=== PATIENT | female | born 1950 | race Caucasian/White ===

== ENCOUNTER 2019-11-20 01:55 | Inpatient (IN) | payer BC ==
[~2019-11-20] VITALS: Ht 170.2 cm; Wt 104.8 kg
--- NOTE | 2019-11-20 02:15 | NUR ---
PT FROM [place] WITH ABDOMINAL PAIN X1 DAY, REPORTS EPIGASTRIC PAIN AFTER EATING FOR APPX X1 MONTH, WITH SIGNIFICANT INCREASE IN PAIN TODAY ALONG WITH NAUSEA. PT DENIES ANY OTHER MEDICAL C/O AT THIS TIME. PT PLACED ON MONITORING, CALL LIGHT WITHIN REACH, ALL SAFETY MEASURES IN PLACE, FAMILY AT FOR SUPPORT.
[2019-11-20] MEDS ORDERED: MORPHINE SULFATE 4 MG/ML, 1ML IVPush PRN (02:30)
[2019-11-20] MEDS ORDERED: SODIUM CHLORIDE 0.9% 1,000ML IVBOLUS ONE (02:30)
[2019-11-20] MEDS ORDERED: ONDANSETRON 2MG/ML, 2ML IVPush ONE (02:30)
[2019-11-20] MEDS ORDERED: SODIUM CHLORIDE FLUSH 10ML SYR IVF ONE (02:30)
[2019-11-20] MEDS ORDERED: ONDANSETRON 2MG/ML, 2ML ONE (02:35)
[2019-11-20] MEDS ORDERED: MORPHINE SULFATE 4 MG/ML, 1ML ONE (02:35)
--- NOTE | 2019-11-20 02:50 | NUR ---
IV PLACED, IVF INITIATED, MEDICATED PER MAR, PT TO IMAGING AT THIS TIME.
--- NOTE | 2019-11-20 03:04 | NUR ---
not in room for ekg
[2019-11-20 03:11] LABS: BASOPHILS # (AUTO) 0.04 x10^3/uL (0-0.1); BASOPHILS % (AUTO) 1 % (0-1); EOSINOPHILS # (AUTO) 0.14 x10^3/uL (0-0.4); EOSINOPHILS % (AUTO) 2 % (1-7); LYMPHOCYTES # (AUTO) 0.71 x10^3/uL (1-3.4); LYMPHOCYTES % (AUTO) 12 % (22-44); MD NO; MEAN CORPUSCULAR HEMOGLOBIN 34.8 pg (27.0-34.8); MEAN CORPUSCULAR HGB CONC 34.2 g/dL (32.4-35.8); MEAN PLATELET VOLUME 9.1 fL (7.4-10.4); MONOCYTES # (AUTO) 0.54 x10^3/uL (0.2-0.8); MONOCYTES % (AUTO) 9 % (2-9); NEUTROPHILS # (AUTO) 4.74 x10^3/uL (1.8-6.8); NEUTROPHILS % (AUTO) 77 % (42-75); PLATELET COUNT 205 x10^3/uL (130-400); RED BLOOD COUNT 4.15 x10^6/uL (3.82-5.3)
[2019-11-20 03:19] LABS: ALBUMIN 3.1 g/dL (3.4-5.0); ANION GAP 7 mmol/L (5-15); CALCIUM 8.8 mg/dL (8.5-10.1); CHLORIDE 110 mmol/L (98-107)
[2019-11-20 03:25] LABS: ALANINE AMINOTRANSFERASE 342 U/L (12-78); ALKALINE PHOSPHATASE 86 U/L (45-117); BILIRUBIN,TOTAL 9.7 mg/dL (0.2-1.0); CREATININE 0.69 mg/dL (0.55-1.02); TROPONIN I < 0.015 ng/mL (0.000-0.045)
[2019-11-20] MEDS ORDERED: NAPR250T6 PO (04:14)
[2019-11-20] MEDS ORDERED: hydrALAzine 20 MG/ML, 1ML IVPush PRN (05:00)
[2019-11-20] MEDS ORDERED: ONDANSETRON 2MG/ML, 2ML IVPush PRN (05:00)
[2019-11-20 05:13] VITALS: BP 155/79
[2019-11-20] MEDS: LACTATED RINGERS 1,000 ML IV SCH ×2 (05:54→21:10)
[2019-11-20] MEDS ORDERED: POTASSIUM CHLORIDE 40 MEQ in SODIUM CHLORIDE 0.9% 500 ML IV ONE (07:00)
[2019-11-20 08:06] VITALS: BP 148/74
[2019-11-20 13:32] VITALS: BP 136/78
[2019-11-20] MEDS: SENNA/DOCUSATE TABLET PO SCH (13:41)
[2019-11-20] MEDS: ACETAMINOPHEN 325 MG TABLET PO PRN (13:41)
[2019-11-20 18:29] VITALS: BP 146/83
[2019-11-21 00:11] VITALS: BP 162/78
[2019-11-21] MEDS: LACTATED RINGERS 1,000 ML IV SCH (06:27)
[2019-11-21 07:29] VITALS: BP 170/76
[2019-11-21 07:36] LABS: ALBUMIN 2.8 g/dL (3.4-5.0); ANION GAP 8 mmol/L (5-15); CALCIUM 8.5 mg/dL (8.5-10.1); CHLORIDE 113 mmol/L (98-107)
[2019-11-21 07:40] LABS: ALANINE AMINOTRANSFERASE 206 U/L (12-78); ALKALINE PHOSPHATASE 70 U/L (45-117); BILIRUBIN,TOTAL 6.2 mg/dL (0.2-1.0); CREATININE 0.51 mg/dL (0.55-1.02); TOTAL PROTEIN 5.7 g/dL (6.4-8.2)
[2019-11-21 07:59] LABS: BASOPHILS # (AUTO) 0.02 x10^3/uL (0-0.1); BASOPHILS % (AUTO) 1 % (0-1); EOSINOPHILS # (AUTO) 0.14 x10^3/uL (0-0.4); EOSINOPHILS % (AUTO) 4 % (1-7); LYMPHOCYTES # (AUTO) 0.75 x10^3/uL (1-3.4); LYMPHOCYTES % (AUTO) 19 % (22-44); MD NO; MEAN CORPUSCULAR HEMOGLOBIN 34.9 pg (27.0-34.8); MEAN CORPUSCULAR HGB CONC 34.1 g/dL (32.4-35.8); MEAN CORPUSCULAR VOLUME 102.3 fL (80-100); MEAN PLATELET VOLUME 9.1 fL (7.4-10.4); MONOCYTES # (AUTO) 0.32 x10^3/uL (0.2-0.8); MONOCYTES % (AUTO) 8 % (2-9); NEUTROPHILS # (AUTO) 2.75 x10^3/uL (1.8-6.8); NEUTROPHILS % (AUTO) 69 % (42-75); PLATELET COUNT 209 x10^3/uL (130-400); RED BLOOD COUNT 3.56 x10^6/uL (3.82-5.3); RED CELL DISTRIBUTION WIDTH 13.2 % (9.6-15.2)
[2019-11-21] MEDS: SENNA/DOCUSATE TABLET PO SCH (09:00)
[2019-11-21 14:06] VITALS: BP 152/83
[2019-11-21 19:36] VITALS: BP 167/81
[2019-11-22 00:39] VITALS: BP 157/78
[2019-11-22] MEDS: LACTATED RINGERS 1,000 ML IV SCH ×2 (00:39→20:30)
[2019-11-22 06:06] LABS: ALBUMIN 2.8 g/dL (3.4-5.0); ANION GAP 7 mmol/L (5-15); CALCIUM 8.4 mg/dL (8.5-10.1); CHLORIDE 112 mmol/L (98-107)
[2019-11-22 06:10] LABS: ALANINE AMINOTRANSFERASE 186 U/L (12-78); ALKALINE PHOSPHATASE 67 U/L (45-117); BILIRUBIN,TOTAL 6.2 mg/dL (0.2-1.0); CREATININE 0.59 mg/dL (0.55-1.02)
[2019-11-22] MEDS ORDERED: BUPIVACAINE/EPI 0.5% 1:200K ONE (06:45)
[2019-11-22 07:10] VITALS: BP 180/92
[2019-11-22] MEDS ORDERED: MIDAZOLAM 1 MG/ML, 2ML ONE ×2 (08:58→11:09)
[2019-11-22] MEDS ORDERED: FENTANYL PF 100 MCG/2ML ONE ×2 (08:58→10:36)
[2019-11-22] MEDS ORDERED: CHLORHEXIDINE 15 ML UDC MM ONE (09:00)
[2019-11-22] MEDS: SENNA/DOCUSATE TABLET PO SCH (09:00)
[2019-11-22] MEDS ORDERED: DIPHENHYDRAMINE 50 MG/ML, 1ML IVPush PRN (09:30)
[2019-11-22] MEDS ORDERED: hydrALAzine 20 MG/ML, 1ML IV PRN (09:30)
[2019-11-22] MEDS ORDERED: OXYcodone 5 MG/5 ML ORAL.SOL UDC PO PRN (09:30)
[2019-11-22] MEDS ORDERED: HYDROmorphone 1 MG/ML, 1ML INJ IVPush PRN (09:30)
[2019-11-22] MEDS ORDERED: ONDANSETRON 2MG/ML, 2ML IVPush PRN (09:30)
[2019-11-22] MEDS ORDERED: LABETALOL 5MG/ML, 20ML IV PRN (09:30)
[2019-11-22] MEDS ORDERED: MEPERIDINE/PF 25MG/0.5ML IVPush PRN (09:30)
[2019-11-22] MEDS ORDERED: ACETAMINOPHEN 325 MG TABLET PO PRN (09:30)
[2019-11-22] MEDS ORDERED: PROMETHAZINE 25 MG/ML, 1ML IVPush PRN (09:30)
[2019-11-22] MEDS ORDERED: DIAZEPAM 5 MG/ML, 2ML IVPush PRN (09:30)
[2019-11-22] MEDS ORDERED: ACETAMINOPHEN 650 MG/20.3 ML UDC ONE (10:37)
[2019-11-22] MEDS ORDERED: ACETAMINOPHEN 325 MG TABLET ONE (10:37)
[2019-11-22] MEDS ORDERED: OXYcodone 5 MG/5 ML ORAL.SOL UDC ONE (10:37)
[2019-11-22] MEDS: FENTANYL PF 100 MCG/2ML IV PRN ×3 (10:40→12:10)
[2019-11-22] MEDS ORDERED: PROPOFOL 10 MG/ML, 100ML IV ONE (11:10)
[2019-11-22 13:38] VITALS: BP 159/84
[2019-11-22] MEDS ORDERED: POTASSIUM CHLORIDE 20 MEQ TAB.ER.PRT PO ONE (15:30)
[2019-11-22] MEDS: DILTIAZEM 30 MG TABLET PO SCH ×2 (15:30→22:00)
[2019-11-22 16:42] VITALS: BP 125/74
[2019-11-22] MEDS: RIVAROXABAN 20 MG TABLET PO SCH (16:43)
[2019-11-22 17:44] LABS: TROPONIN I < 0.015 ng/mL (0.000-0.045)
[2019-11-22 19:23] VITALS: BP 125/72
[2019-11-23 00:10] VITALS: BP 137/72
[2019-11-23] MEDS: DILTIAZEM 30 MG TABLET PO SCH ×3 (05:54→22:27)
[2019-11-23 06:19] LABS: CHLORIDE 110 mmol/L (98-107)
[2019-11-23 06:41] LABS: ANION GAP 6 mmol/L (5-15); CALCIUM 8.7 mg/dL (8.5-10.1); CREATININE 0.79 mg/dL (0.55-1.02)
[2019-11-23 07:44] VITALS: BP 151/83
[2019-11-23] MEDS: SENNA/DOCUSATE TABLET PO SCH (09:04)
[2019-11-23] MEDS: ACETAMINOPHEN 325 MG TABLET PO PRN ×3 (09:05→20:08)
[2019-11-23] MEDS: LACTATED RINGERS 1,000 ML IV SCH ×2 (09:05→17:11)
[2019-11-23 10:14] LABS: ALBUMIN 2.6 g/dL (3.4-5.0); ANION GAP 6 mmol/L (5-15); CALCIUM 8.7 mg/dL (8.5-10.1); CHLORIDE 111 mmol/L (98-107)
[2019-11-23 10:17] LABS: ALANINE AMINOTRANSFERASE 240 U/L (12-78); ALKALINE PHOSPHATASE 69 U/L (45-117); BILIRUBIN,TOTAL 7.3 mg/dL (0.2-1.0); CREATININE 0.83 mg/dL (0.55-1.02)
[2019-11-23] MEDS ORDERED: RIVA20TA PO (11:59)
[2019-11-23 13:28] VITALS: BP 167/81
[2019-11-23 16:44] LABS: ANA SCREEN NEGATIVE (Negative)
[2019-11-23] MEDS: RIVAROXABAN 20 MG TABLET PO SCH (17:11)
[2019-11-23 19:15] VITALS: BP 163/90
[2019-11-23] MEDS: morphine SULFATE 10 MG/ML, 1ML IVPush PRN (20:09)
[2019-11-24] VITALS (9 sets, daily range): BP systolic 153–179; BP diastolic 74–91
[2019-11-24] MEDS: ACETAMINOPHEN 325 MG TABLET PO PRN ×2 (00:48→20:14)
[2019-11-24] MEDS: LACTATED RINGERS 1,000 ML IV SCH (03:22)
[2019-11-24] MEDS: DILTIAZEM 30 MG TABLET PO SCH ×3 (06:00→22:02)
[2019-11-24] MEDS ORDERED: POTASSIUM CHLORIDE 20 MEQ TAB.ER.PRT PO ONE (08:00)
[2019-11-24] MEDS: morphine SULFATE 10 MG/ML, 1ML IVPush PRN ×2 (09:11→18:14)
[2019-11-24] MEDS: LISINOPRIL 10 MG TABLET PO SCH (09:12)
[2019-11-24] MEDS: SENNA/DOCUSATE TABLET PO SCH (09:12)
[2019-11-24 11:17] LABS: BASOPHILS # (AUTO) 0.09 x10^3/uL (0-0.1); BASOPHILS % (AUTO) 2 % (0-1); EOSINOPHILS # (AUTO) 0.06 x10^3/uL (0-0.4); EOSINOPHILS % (AUTO) 1 % (1-7); LYMPHOCYTES # (AUTO) 0.76 x10^3/uL (1-3.4); LYMPHOCYTES % (AUTO) 12 % (22-44); MD NO; MEAN CORPUSCULAR HEMOGLOBIN 34.5 pg (27.0-34.8); MEAN CORPUSCULAR VOLUME 101.6 fL (80-100); MEAN PLATELET VOLUME 8.7 fL (7.4-10.4); MONOCYTES % (AUTO) 8 % (2-9); NEUTROPHILS # (AUTO) 4.96 x10^3/uL (1.8-6.8); NEUTROPHILS % (AUTO) 78 % (42-75); PLATELET COUNT 242 x10^3/uL (130-400); RED BLOOD COUNT 3.68 x10^6/uL (3.82-5.3); RED CELL DISTRIBUTION WIDTH 13.7 % (9.6-15.2)
[2019-11-24 11:21] LABS: ALANINE AMINOTRANSFERASE 232 U/L (12-78); ALBUMIN 2.9 g/dL (3.4-5.0); ANION GAP 7 mmol/L (5-15); BILIRUBIN, DIRECT 7.4 mg/dL (0.1-0.2); CALCIUM 9.2 mg/dL (8.5-10.1); CHLORIDE 107 mmol/L (98-107); CREATININE 0.63 mg/dL (0.55-1.02)
[2019-11-24 11:23] LABS: ALKALINE PHOSPHATASE 86 U/L (45-117); BILIRUBIN,INDIRECT 1.3 mg/dL (0.0-2.0); BILIRUBIN,TOTAL 8.7 mg/dL (0.2-1.0); TOTAL PROTEIN 6.6 g/dL (6.4-8.2)
[2019-11-24] MEDS ORDERED: LISI-167 PO (12:58)
[2019-11-24] MEDS: POTASSIUM CHLORIDE 20 MEQ TAB.ER.PRT PO SCH (17:14)
[2019-11-24] MEDS: CEFTRIAXONE PMX 2GM/50ML 50 ML IV SCH (17:16)
[2019-11-24] MEDS: METRONIDAZOLE PMX 500MG/100ML 100 ML IV SCH (18:14)
[2019-11-24] MEDS ORDERED: DIPHENHYDRAMINE 50 MG CAPSULE ONE (20:29)
[2019-11-24] MEDS ORDERED: DIPHENHYDRAMINE 50 MG CAPSULE PO ONE (20:30)
[2019-11-25 00:30] VITALS: BP 146/76
[2019-11-25] MEDS: METRONIDAZOLE PMX 500MG/100ML 100 ML IV SCH ×3 (02:45→17:09)
[2019-11-25] MEDS: DILTIAZEM 30 MG TABLET PO SCH ×3 (06:03→21:16)
[2019-11-25 07:08] VITALS: BP 160/83
[2019-11-25] MEDS: SENNA/DOCUSATE TABLET PO SCH (09:33)
[2019-11-25] MEDS: POTASSIUM CHLORIDE 20 MEQ TAB.ER.PRT PO SCH ×3 (09:33→17:08)
[2019-11-25] MEDS: LISINOPRIL 10 MG TABLET PO SCH (09:34)
[2019-11-25 13:55] VITALS: BP 138/81
[2019-11-25] MEDS: ACETAMINOPHEN 325 MG TABLET PO PRN (14:27)
[2019-11-25] MEDS: CEFTRIAXONE PMX 2GM/50ML 50 ML IV SCH (16:16)
[2019-11-25 19:00] VITALS: BP 134/79
[2019-11-25 21:15] VITALS: BP 138/71
[2019-11-25] MEDS ORDERED: DIPHENHYDRAMINE 25 MG CAPSULE PO ONE (21:30)
[2019-11-26 01:16] VITALS: BP 162/73
[2019-11-26] MEDS: METRONIDAZOLE PMX 500MG/100ML 100 ML IV SCH ×3 (02:07→17:47)
[2019-11-26 05:23] LABS: BASOPHILS # (AUTO) 0.01 x10^3/uL (0-0.1); BASOPHILS % (AUTO) 0 % (0-1); EOSINOPHILS # (AUTO) 0.18 x10^3/uL (0-0.4); EOSINOPHILS % (AUTO) 3 % (1-7); LYMPHOCYTES # (AUTO) 0.79 x10^3/uL (1-3.4); LYMPHOCYTES % (AUTO) 13 % (22-44); MD NO; MEAN CORPUSCULAR HEMOGLOBIN 34.9 pg (27.0-34.8); MEAN CORPUSCULAR HGB CONC 34.3 g/dL (32.4-35.8); MEAN CORPUSCULAR VOLUME 101.7 fL (80-100); MEAN PLATELET VOLUME 9.1 fL (7.4-10.4); MONOCYTES # (AUTO) 0.59 x10^3/uL (0.2-0.8); MONOCYTES % (AUTO) 10 % (2-9); NEUTROPHILS # (AUTO) 4.37 x10^3/uL (1.8-6.8); NEUTROPHILS % (AUTO) 74 % (42-75); PLATELET COUNT 259 x10^3/uL (130-400); RED BLOOD COUNT 3.64 x10^6/uL (3.82-5.3); RED CELL DISTRIBUTION WIDTH 13.8 % (9.6-15.2)
[2019-11-26] MEDS: DILTIAZEM 30 MG TABLET PO SCH ×3 (05:27→21:24)
[2019-11-26 05:31] LABS: CHLORIDE 108 mmol/L (98-107)
[2019-11-26 05:41] LABS: ALANINE AMINOTRANSFERASE 185 U/L (12-78); ALBUMIN 2.5 g/dL (3.4-5.0); ALKALINE PHOSPHATASE 110 U/L (45-117); ANION GAP 6 mmol/L (5-15); BILIRUBIN,TOTAL 7.2 mg/dL (0.2-1.0); CALCIUM 8.9 mg/dL (8.5-10.1); CREATININE 0.67 mg/dL (0.55-1.02); TOTAL PROTEIN 6.3 g/dL (6.4-8.2)
[2019-11-26 06:46] VITALS: BP 122/80
[2019-11-26] MEDS: SENNA/DOCUSATE TABLET PO SCH (09:00)
[2019-11-26] MEDS: ACETAMINOPHEN 325 MG TABLET PO PRN (09:05)
[2019-11-26] MEDS: LISINOPRIL 10 MG TABLET PO SCH (09:05)
[2019-11-26] MEDS: POTASSIUM CHLORIDE 20 MEQ TAB.ER.PRT PO SCH ×3 (09:05→17:06)
[2019-11-26 12:45] VITALS: BP 107/56
[2019-11-26] MEDS: CEFTRIAXONE PMX 2GM/50ML 50 ML IV SCH (17:06)
[2019-11-26 18:46] VITALS: BP 124/73
[2019-11-27 00:40] VITALS: BP 116/73
[2019-11-27] MEDS: METRONIDAZOLE PMX 500MG/100ML 100 ML IV SCH ×3 (01:38→18:47)
[2019-11-27] MEDS: DILTIAZEM 30 MG TABLET PO SCH ×3 (05:40→22:00)
[2019-11-27 08:01] VITALS: BP 150/84
[2019-11-27] MEDS: SENNA/DOCUSATE TABLET PO SCH (09:00)
[2019-11-27] MEDS: LISINOPRIL 10 MG TABLET PO SCH (09:26)
[2019-11-27] MEDS: POTASSIUM CHLORIDE 20 MEQ TAB.ER.PRT PO SCH ×3 (09:26→18:10)
[2019-11-27] MEDS ORDERED: CHLORHEXIDINE 15 ML UDC ONE (10:40)
[2019-11-27] MEDS ORDERED: MIDAZOLAM 1 MG/ML, 2ML ONE (11:17)
[2019-11-27] MEDS ORDERED: FENTANYL PF 100 MCG/2ML ONE (11:17)
[2019-11-27] MEDS ORDERED: MEPERIDINE/PF 25MG/0.5ML IVPush PRN (11:30)
[2019-11-27] MEDS ORDERED: DIAZEPAM 5 MG/ML, 2ML IVPush PRN (11:30)
[2019-11-27] MEDS ORDERED: ONDANSETRON 2MG/ML, 2ML IVPush PRN (11:30)
[2019-11-27] MEDS ORDERED: LABETALOL 5MG/ML, 20ML IV PRN (11:30)
[2019-11-27] MEDS ORDERED: DIPHENHYDRAMINE 50 MG/ML, 1ML IVPush PRN ×2 (11:30)
[2019-11-27] MEDS ORDERED: ROCURONIUM 10MG/ML,5ML ONE (11:30)
[2019-11-27] MEDS ORDERED: DEXAMETHASONE 4 MG/ML, 1ML ONE (11:30)
[2019-11-27] MEDS ORDERED: OXYcodone 5 MG/5 ML ORAL.SOL UDC PO PRN (11:30)
[2019-11-27] MEDS ORDERED: PROMETHAZINE 25 MG/ML, 1ML IVPush PRN (11:30)
[2019-11-27] MEDS ORDERED: MIDAZOLAM 1 MG/ML, 2ML IV PRN (11:30)
[2019-11-27] MEDS ORDERED: HYDROmorphone 1 MG/ML, 1ML INJ IVPush PRN (11:30)
[2019-11-27] MEDS ORDERED: ALBUTEROL SULFATE 2.5 MG/3 ML NPPB PRN (11:30)
[2019-11-27] MEDS ORDERED: PROMETHAZINE 12.5 MG SUPP PR PRN (11:30)
[2019-11-27] MEDS ORDERED: FENTANYL PF 100 MCG/2ML IV PRN (11:30)
[2019-11-27] MEDS ORDERED: hydrALAzine 20 MG/ML, 1ML IV PRN (11:30)
[2019-11-27] MEDS ORDERED: EPHEDRINE 50 MG/ML, 1ML IVPush PRN (11:30)
[2019-11-27] MEDS ORDERED: SUCCINYLCHOLINE 20 MG/ML, 10ML ONE (11:31)
[2019-11-27] MEDS ORDERED: OMNIPAQUE 350 MG/ML, 50 ML BOTTLE ONE (11:58)
[2019-11-27 15:00] VITALS: BP 96/63
[2019-11-27] MEDS: CEFTRIAXONE PMX 2GM/50ML 50 ML IV SCH (18:10)
[2019-11-27] MEDS: OMEPRAZOLE 20 MG CAPSULE.DR PO SCH (18:10)
[2019-11-27 19:09] VITALS: BP 102/61
[2019-11-28] MEDS: METRONIDAZOLE PMX 500MG/100ML 100 ML IV SCH ×2 (02:06→09:49)
[2019-11-28 02:30] VITALS: BP 106/66
[2019-11-28] MEDS: DILTIAZEM 30 MG TABLET PO SCH (05:10)
[2019-11-28 05:22] LABS: MEAN CORPUSCULAR HEMOGLOBIN 34.3 pg (27.0-34.8); MEAN CORPUSCULAR HGB CONC 33.4 g/dL (32.4-35.8); MEAN CORPUSCULAR VOLUME 102.9 fL (80-100); MEAN PLATELET VOLUME 9.1 fL (7.4-10.4); PLATELET COUNT 288 x10^3/uL (130-400); RED BLOOD COUNT 3.64 x10^6/uL (3.82-5.3); RED CELL DISTRIBUTION WIDTH 14.1 % (9.6-15.2)
[2019-11-28 05:26] LABS: ALANINE AMINOTRANSFERASE 151 U/L (12-78); ALBUMIN 2.5 g/dL (3.4-5.0); ANION GAP 9 mmol/L (5-15); CALCIUM 9.1 mg/dL (8.5-10.1); CHLORIDE 109 mmol/L (98-107); CREATININE 0.64 mg/dL (0.55-1.02)
[2019-11-28 05:29] LABS: ALKALINE PHOSPHATASE 69 U/L (45-117); BILIRUBIN,TOTAL 2.7 mg/dL (0.2-1.0); TOTAL PROTEIN 6.5 g/dL (6.4-8.2)
[2019-11-28] MEDS: OMEPRAZOLE 20 MG CAPSULE.DR PO SCH (05:34)
[2019-11-28 06:19] LABS: BASOPHILS # (AUTO) 0.12 x10^3/uL (0-0.1); BASOPHILS % (AUTO) 1 % (0-1); EOSINOPHILS # (AUTO) 0.16 x10^3/uL (0-0.4); EOSINOPHILS % (AUTO) 1 % (1-7); LYMPHOCYTES # (AUTO) 0.87 x10^3/uL (1-3.4); LYMPHOCYTES % (AUTO) 8 % (22-44); MD SCAN; MONOCYTES # (AUTO) 0.59 x10^3/uL (0.2-0.8); MONOCYTES % (AUTO) 5 % (2-9); NEUTROPHILS # (AUTO) 9.59 x10^3/uL (1.8-6.8); NEUTROPHILS % (AUTO) 85 % (42-75)
[2019-11-28 07:11] VITALS: BP 115/68
[2019-11-28] MEDS: POTASSIUM CHLORIDE 20 MEQ TAB.ER.PRT PO SCH ×2 (08:46→12:21)
[2019-11-28] MEDS: LISINOPRIL 10 MG TABLET PO SCH (08:46)
[2019-11-28] MEDS: SENNA/DOCUSATE TABLET PO SCH (08:47)
[2019-11-28] MEDS ORDERED: CEFD300C37 PO (10:16)
[2019-11-28] MEDS ORDERED: METR500T PO (10:16)
[2020-01-22] MEDS ORDERED: ONDANSETRON 2MG/ML, 2ML ONE (09:15)
[2020-01-22] MEDS ORDERED: hydrALAzine 20 MG/ML, 1ML ONE (09:15)
[2020-01-22] MEDS ORDERED: PROPOFOL 10 MG/ML, 100ML IV ONE (09:15)
[2020-01-22] MEDS ORDERED: DEXAMETHASONE 4 MG/ML, 1ML ONE (09:15)
[2020-01-22] MEDS ORDERED: MIDAZOLAM 1 MG/ML, 5ML ONE (09:15)
[2020-01-22] MEDS ORDERED: CEFAZOLIN PMX 1GM/50ML ONE (09:15)
[2020-01-22] MEDS ORDERED: SUGAMMADEX 200 MG/2 ML IVPush ONE (09:15)
[2020-01-22] MEDS ORDERED: ROCURONIUM 10 MG/ML,10ML ONE (09:15)
== END 2019-11-28 13:35 | disposition home or self-care (01) | DRG 418 ==
LOC: ED 03:31 → EDIP 03:35 → 4NE 05:05 → 4WST 11-21 12:16 → DCLOUNGE 11-28 13:15
PROVIDERS: ADMIT Family Medicine; ATTEND Internal Medicine
PROC: 5A2204Z Restoration of Cardiac Rhythm, Single (ICD-10-PCS; 2019-11-22)
PROC: 0FT44ZZ Resection of Gallbladder, Percutaneous Endoscopic Approach (ICD-10-PCS; principal; 2019-11-22 09:00)
PROC: 0FC98ZZ Extirpation of Matter from Common Bile Duct, Via Natural or Artificial Opening Endoscopic (ICD-10-PCS; 2019-11-27)
PROC: BF131ZZ Fluoroscopy of Gallbladder and Bile Ducts using Low Osmolar Contrast (ICD-10-PCS; 2019-11-27)
DX: K80.61 Calculus of gallbladder and bile duct with cholecystitis, unspecified, with obstruction (principal); D68.69 Other thrombophilia; E66.9 Obesity, unspecified; Z68.36 Body mass index [BMI] 36.0-36.9, adult; Z88.2 Allergy status to sulfonamides; E87.6 Hypokalemia; F17.210 Nicotine dependence, cigarettes, uncomplicated; G47.33 Obstructive sleep apnea (adult) (pediatric); I10 Essential (primary) hypertension; I27.20 Pulmonary hypertension, unspecified; I48.0 Paroxysmal atrial fibrillation; I95.81 Postprocedural hypotension; J44.9 Chronic obstructive pulmonary disease, unspecified; K59.00 Constipation, unspecified; K76.89 Other specified diseases of liver; K82.8 Other specified diseases of gallbladder; N28.1 Cyst of kidney, acquired; Z83.3 Family history of diabetes mellitus; Z90.49 Acquired absence of other specified parts of digestive tract; Z20.828 Contact with and (suspected) exposure to other viral communicable diseases
CPT/HCPCS: 36415; 74181; 74183; 74328; 76700; 80048; 80053; 80074; 82103; 82105; 82247; 82248; 82977; 83516; 83690; 83735; 84100; 84443; 84484; 85025; 86038; 87635; 88304; 93005; 93306; 94060; 96374; 96375; G0378; J0690; J0696; J1100; J2250; J2405; J2704; J3010; J3480; Q9967; J0330; J0360; J2270; J7030; J7040; J7120; Q0163